=== PATIENT | male | born 1965 | race Caucasian/White ===

== ENCOUNTER 2017-03-11 20:45 | Emergency (ER) | payer BC, OTHER ==
[~2017-03-11] VITALS: Ht 177.8 cm; Wt 131.4 kg
[~2017-03-11 20:45] MED LIST: BENI20TA25 PO; FENO50TA PO; JANU50TA9 PO; PRAV20TA67 PO; PROT40TA PO; TOBRADEX; TOBRADEX OPTH OP
[2017-03-11 21:00] VITALS: BP 145/79; PULSE 89; RESP 18; TEMP 98.9; O2SAT 94
[2017-03-11] MEDS ORDERED: SODIUM CHLORIDE 0.9% FLUSH 10 ML FLUSH IVF PRN (21:00)
[2017-03-11] MEDS ORDERED: METF1000 PO (21:11)
[2017-03-11] MEDS ORDERED: VALA1TAB PO (21:11)
[2017-03-11] MEDS ORDERED: DAPA1TAB3 PO (21:11)
[2017-03-11] MEDS ORDERED: BENI20TA5 PO (21:11)
[2017-03-11] MEDS ORDERED: CHOL1CAP2 PO (21:11)
[2017-03-11] MEDS ORDERED: DOXY1CAP91 PO (21:11)
[2017-03-11] MEDS ORDERED: EXENINJ SQ (21:11)
[2017-03-11] MEDS ORDERED: TIMO0.2517 EACH EYE (21:11)
[2017-03-11] MEDS ORDERED: PRAV20TA2 PO (21:11)
[2017-03-11] MEDS ORDERED: LOTE0.5S EACH EYE (21:11)
[2017-03-11 21:13] VITALS: RESP 18; O2SAT 94
[2017-03-11 21:17] LABS: AUTOMATED NEUTROPHIL # 6.5 TH/MM3 (1.8-7.7); BASOPHIL % 0.3 % (0.0-2.0); EOSINOPHIL % 0.5 % (0.0-4.0); HEMO FLAGS DIFF FINAL; LYMPH % 17.4 % (9.0-44.0); LYMPHOCYTE # 1.6 TH/MM3 (1.0-4.8); MEAN CELL VOLUME 93.1 FL (80.0-100.0); MEAN CORPUSCULAR HEMOGLOBIN 31.6 PG (27.0-34.0); MEAN CORPUSCULAR HGB CONC 33.9 % (32.0-36.0); MONO % 9.9 % (0.0-8.0); NEUT % 71.9 % (16.0-70.0); PLATELET COUNT 263 TH/MM3 (150-450); RED BLOOD COUNT 5.26 MIL/MM3 (4.50-5.90); RED CELL DISTRIBUTION WIDTH 12.4 % (11.6-17.2)
--- NOTE | 2017-03-11 21:19 | RADHPO ---
EXAM DATE/TIME: 03/11/2017 21:06 [place] COMPARISON: No previous studies available for comparison. INDICATIONS : Chest pain, vomiting starting today MEDICAL HISTORY : None. SURGICAL HISTORY : None. ENCOUNTER: Initial ACUITY: 1 day PAIN SCORE: 5/10 LOCATION: Bilateral chest FINDINGS: Mild bilateral perihilar and basilar parenchymal opacities are present. No evidence of effusion. Card iac contours are satisfactory for technique and projection. CONCLUSION: Mild perihilar and basilar infiltrates Sree Baker MD on March 11, 2017 at 21:16 Board Certified Radiologist. This report was verified electronically.
[2017-03-11 21:24] LABS: CHLORIDE 101 MEQ/L (98-107); SODIUM (NA) 137 MEQ/L (136-145)
[2017-03-11 21:29] LABS: ANION GAP 10 MEQ/L (5-15); APTT (PATIENT) 28.2 SEC (24.3-30.1); BICARBONATE 26.5 MEQ/L (21.0-32.0); BLOOD UREA NITROGEN 13 MG/DL (7-18); INTERNATIONAL NORMALIZED RATIO 1.1 RATIO; MAGNESIUM 2.1 MG/DL (1.5-2.5)
[2017-03-11] MEDS ORDERED: ALUMINUM/MAGNESIUM/SIMETH 30 ML CUP PO ONE (21:30)
[2017-03-11] MEDS ORDERED: LIDOCAINE VISCOUS 2% SOLN 15 ML UDC PO ONE (21:30)
[2017-03-11 21:31] LABS: ALT (GPT) 89 U/L (12-78)
[2017-03-11 21:32] LABS: AST (GOT) 44 U/L (15-37); GLOMERULAR FILTRATION RATE 84 ML/MIN (>89)
[2017-03-11 21:33] LABS: TOTAL BILIRUBIN ADULT 0.7 MG/DL (0.2-1.0)
[2017-03-11 21:34] LABS: ALKALINE PHOSPHATASE 53 U/L (45-117); CREATINE KINASE 129 U/L (39-308)
--- NOTE | 2017-03-11 21:43 | PD ---
HPI Chief Complaint: Chest Pain Time Seen by Provider: 20:56 Travel History International Travel<30 days: No Contact w/Intl Traveler<30days: No Traveled to known affect area: No History of Present Illness HPI Patient is a 51-year-old male presents emergency department with nausea and vomiting since yesterday morning now becoming epigastric and left-sided chest pain. Patient states fairly sharp in nature and the pain happens after he retches. Patient states he has not had any belly pain blood in the emesis no blood in the stool. He has not had any shortness of breath fevers or chest tightness. Patient states the symptoms a never happened to him before. Denies any history of heart or lung disease. PFSH Past Medical History Anxiety: No Depression: No Cancer: No Cardiovascular Problems: No High Cholesterol: Yes Chemotherapy: No Diabetes: Yes Patient Takes Glucophage: Yes Diminished Hearing: No Endocrine: Yes GERD: Yes Genitourinary: No Hypertension: Yes Immune Disorder: No Musculoskeletal: No Neurologic: No Psychiatric: No Reproductive: No Respiratory: Yes Immunizations Current: Yes Radiation Therapy: No Sleep Apnea: Yes (ON bIPAP MACHINE AT HOME) Tetanus Vaccination: Unknown Influenza Vaccination: Yes Past Surgical History Oral Surgery: Yes (wisdom teeth) Social History Alcohol Use: Yes (SOCIAL DRINKER) Tobacco Use: Yes (2-3 CIGARELLOS DAILY) Substance Use: No Allergies-Medications (Allergen,Severity, Reaction): Coded Allergies: No Known Allergies (Verified , 03/11/17) Reported Meds & Prescriptions Reported Meds & Active Scripts Active Phenergan (Promethazine HCl) 25 Mg Tab 25 Mg PO Q6H PRN Zofran Odt (Ondansetron Odt) 4 Mg Tab 4 Mg SL Q6HR PRN Reported Lotemax Opth Drops (Loteprednol Etabonate) 0.5 % Soln 1 Drop EACH EYE DAILY Timolol Maleate (Timolol Maleate (Ophth)) 0.25 % Ellen 1 Drop EACH EYE DAILY Doxycycline (Doxycycline (Monohydrate)) 100 Mg Cap 100 Mg PO DAILY PRN Valacyclovir (Valacyclovir HCl) 1 Gm Tab 1,000 Mg PO DAILY Pravastatin 20 Mg Tab 20 Mg PO EVERY OTHER DAY Benicar (Olmesartan) 20 Mg Tab 20 Mg PO DAILY Farxiga (Dapagliflozin) 10 Mg Tab 10 Mg PO DAILY Fenofibric Acid Dr (Choline Fenofibrate DR) 135 mg Capdr 135 Mg PO DAILY Metformin (Metformin HCl) 1,000 Mg Tab 1,000 Mg PO BIDPC With meals Bydureon Inj (Exenatide) 2 Mg Vial 2 Mg SQ Q7D Review of Systems Except as stated in HPI: all other systems reviewed are Neg Physical Exam Narrative GENERAL: Well-developed well-nourished no apparent distress. SKIN: Focused skin assessment warm/dry. HEAD: Atraumatic. Normocephalic. EYES: Pupils equal and round. No scleral icterus. No injection or drainage. ENT: No nasal bleeding or discharge. Mucous membranes pink and moist. NECK: Trachea midline. No JVD. CARDIOVASCULAR: Regular rate and rhythm. No murmur appreciated. 2+ bilateral equal pulses in all 4 extremity's. RESPIRATORY: No accessory muscle use. Clear to auscultation. Breath sounds equal bilaterally. GASTROINTESTINAL: Abdomen soft, non-tender, nondistended. Hepatic and splenic margins not palpable. MUSCULOSKELETAL: No obvious deformities. No clubbing. No cyanosis. No edema. NEUROLOGICAL: Awake and alert. No obvious cranial nerve deficits. Motor grossly within normal limits. Normal speech. PSYCHIATRIC: Appropriate mood and affect; insight and judgment normal. Data Data Last Documented VS Vital Signs Date Time Temp Pulse Resp B/P Pulse Ox O2 Delivery O2 Flow Rate FiO2 03/11/17 21:13 94 Room Air 03/11/17 21:13 18 03/11/17 21:00 98.9 89 145/79 Orders Electrocardiogram (03/11/17 20:56) Ckmb (Isoenzyme) Profile (03/11/17 20:56) Complete Blood Count With Diff (03/11/17 20:56) Comprehensive Metabolic Panel (03/11/17 20:56) Magnesium (Mg) (03/11/17 20:56) Prothrombin Time / Inr (Pt) (03/11/17 20:56) Act Partial Throm Time (Ptt) (03/11/17 20:56) Troponin I (03/11/17 20:56) Lipase (03/11/17 20:56) Chest, Single Ap (03/11/17 20:56) Ecg Monitoring (03/11/17 20:56) Iv Access Insert/Monitor (03/11/17 20:56) Oximetry (03/11/17 20:56) Oxygen Administration (03/11/17 20:56) Sodium Chloride 0.9% Flush (Ns Flush) (03/11/17 21:00) Al-Mag Hy-Si 40-40-4 Mg/Ml Liq (Mag-Al P (03/11/17 21:30) Lidocaine 2% Viscous (Xylocaine 2% Visco (03/11/17 21:30) CKMB (03/11/17 21:10) CKMB% (03/11/17 21:10) Ondansetron Inj (Zofran Inj) (03/11/17 22:15) Sodium Chlor 0.9% 1000 Ml Inj (Ns 1000 M (03/11/17 22:15) Labs Laboratory Tests Test 03/11/17 21:10 White Blood Count 9.0 TH/MM3 Red Blood Count 5.26 MIL/MM3 Hemoglobin 16.6 GM/DL Hematocrit 49.0 % Mean Corpuscular Volume 93.1 FL Mean Corpuscular Hemoglobin 31.6 PG Mean Corpuscular Hemoglobin 33.9 % Concent Red Cell Distribution Width 12.4 % Platelet Count 263 TH/MM3 Mean Platelet Volume 6.9 FL Neutrophils (%) (Auto) 71.9 % Lymphocytes (%) (Auto) 17.4 % Monocytes (%) (Auto) 9.9 % Eosinophils (%) (Auto) 0.5 % Basophils (%) (Auto) 0.3 % Neutrophils # (Auto) 6.5 TH/MM3 Lymphocytes # (Auto) 1.6 TH/MM3 Monocytes # (Auto) 0.9 TH/MM3 Eosinophils # (Auto) 0.0 TH/MM3 Basophils # (Auto) 0.0 TH/MM3 CBC Comment DIFF FINAL Differential Comment Prothrombin Time 12.0 SEC Prothromb Time International 1.1 RATIO Ratio Activated Partial 28.2 SEC Thromboplast Time Sodium Level 137 MEQ/L Potassium Level 4.0 MEQ/L Chloride Level 101 MEQ/L Carbon Dioxide Level 26.5 MEQ/L Anion Gap 10 MEQ/L Blood Urea Nitrogen 13 MG/DL Creatinine 0.95 MG/DL Estimat Glomerular Filtration 84 ML/MIN Rate Random Glucose 117 MG/DL Calcium Level 8.4 MG/DL Magnesium Level 2.1 MG/DL Total Bilirubin 0.7 MG/DL Aspartate Amino Transf 44 U/L (AST/SGOT) Alanine Aminotransferase 89 U/L (ALT/SGPT) Alkaline Phosphatase 53 U/L Total Creatine Kinase 129 U/L Creatine Kinase MB 0.5 NG/ML Troponin I LESS THAN 0.02 NG/ML Total Protein 7.3 GM/DL Albumin 3.7 GM/DL Lipase 121 U/L MDM Medical Decision Making Medical Screen Exam Complete: Yes Emergency Medical Condition: Yes Interpretation(s) EKG shows normal sinus rhythm with left axis deviation. Abnormal R wave progression. Q waves in lead [address] No obvious [address] segment changes. This an abnormal EKG. Differential Diagnosis Epigastric pain, reflux, esophagitis, Stephie-Page tear, ACS is a possibility, AMI. Narrative Course Patient was roomed in the emergency department, his EKG does show some changes in axes. Nonischemic. His initial troponin is negative. He was given Maalox lidocaine and Zofran and is feeling better. His given a liter of normal saline. His labs do show a minimal elevation in AST and ALT with an ALT predominance. Patient states he was tested for hepatitis recently and was negative. No obvious cause of his symptoms was established and I discussed with the patient that cardiac is a possibility. The patient did start with nausea and emesis and then became chest pain suggesting a GI cause rather than cardiac. However discussed with the patient that this is not 100% and if he would like to stay for a cardiac workup including a stress test he is welcome to do so. The patient would like to go home and follow up with his primary care physician at this time. I've written him for scripts of Zofran and Phenergan and discussed that if he changes his mind and would like to be seen for chest pain he is welcome to return to emergency department. Diagnosis Primary Impression: Chest pain Qualified Code: R07.9 - Chest pain, unspecified type Additional Impression: Nausea & vomiting Referrals: Sarah Manning MD Additional Instructions: Follow-up with your primary care physician, he feels like to you may also follow -up with Dr. manning a bull bucker. Please return to the emergency department anytime you feel is necessary Med/Other Pt SpecificInfo: Prescription(s) given Scripts Promethazine (Phenergan)25 Mg Tab25 Mg PO Q6H PRN (Nausea/Vomiting) #20 TAB Ref 0 Prov:Pastor Roe MD 03/11/17 Ondansetron Odt (Zofran Odt)4 Mg Tab4 Mg SL Q6HR PRN (Nausea/Vomiting) #30 TAB Ref 0 Prov:Pastor Roe MD 03/11/17 Disposition: 01 DISCHARGE HOME Condition: Stable Pastor Roe MD March 11, 2017 21:43
[2017-03-11 21:47] LABS: CKMB 0.5 NG/ML (0.5-3.6)
[2017-03-11 22:00] VITALS: BP 126/76; PULSE 82; RESP 20; O2SAT 98
[2017-03-11] MEDS ORDERED: ONDANSETRON HCL 4 MG/2 ML VIAL IV PUSH ONE (22:15)
[2017-03-11] MEDS ORDERED: SODIUM CHLOR 0.9% 1000 ML INJ 1,000 ML IV ONE (22:15)
[2017-03-11] MEDS ORDERED: ZOFR4TAB3 SL (22:43)
[2017-03-11] MEDS ORDERED: PROM25TA5 PO (22:43)
[2017-03-11 23:09] VITALS: BP 131/82
--- NOTE | 2017-03-12 16:08 | EKG ---
Date Performed: 03/11/2017 Time Performed: 20:49:00 PTAGE: 51 years EKG: Sinus rhythm Left axis deviation Inferior infarct - age undetermined Low QRS voltages in precordial leads Left an terior fascicular block Abnormal ECG NO PREVIOUS TRACING DOCTOR: Luis E Peter Interpretating Date/Time 03/12/2017 16:06:48
== END 2017-03-11 23:12 | disposition home or self-care (01) ==
LOC: PHED 20:45
DX: R07.9 Chest pain, unspecified (principal); R11.2 Nausea with vomiting, unspecified; E78.00 Pure hypercholesterolemia, unspecified; E11.9 Type 2 diabetes mellitus without complications; K21.9 Gastro-esophageal reflux disease without esophagitis; I10 Essential (primary) hypertension; R94.31 Abnormal electrocardiogram [ECG] [EKG]; F17.210 Nicotine dependence, cigarettes, uncomplicated; Z79.899 Other long term (current) drug therapy
CPT/HCPCS: 71010; 80053; 82550; 82552; 83690; 83735; 84484; 85025; 85610; 85730; 93005; 96361; 96374; 99285; J2405; J7030